=== PATIENT | male | born 1965 | race African-American/Black ===

== ENCOUNTER 2022-01-21 11:34 | Emergency (ER) | payer OTHER ==
[2022-01-21 12:31] LABS: Absolute Lymphocytes (CBC) 1.2 K/uL (0.7-4.9); Hematocrit 44.8 % (39.6-49.0); Lymphocytes % 34.1 % (15.3-44.8); MPV 9.6 fL (7.6-11.3); RBC Red Blood Cell Count 4.82 M/uL (4.33-5.43)
[2022-01-21 12:48] LABS: ALT/SGPT 30 U/L (12-78); AST/SGOT 20 U/L (15-37); Albumin 3.6 g/dL (3.4-5.0); Alkaline Phosphatase 72 U/L (45-117); BUN Blood Urea Nitrogen 17 mg/dL (7-18); Bicarbonate 31 mmol/L (21-32); Bilirubin Total 0.3 mg/dL (0.2-1.0); Glucose Level 94 mg/dL (74-106); Potassium 4.7 mmol/L (3.5-5.1); Protein, Total 7.8 g/dL (6.4-8.2); Sodium Level 143 mmol/L (136-145)
--- NOTE | 2022-01-21 12:52 | RAD REPORT ---
EXAM DESCRIPTION: RAD - Chest Single View - 01/21/2022 12:38 pm CLINICAL HISTORY: CHEST PAIN Chest pain. COMPARISON: No comparisons FINDINGS: Portable technique limits examination quality. The lungs are grossly clear. The heart is upper limit of normal in size. No displaced fractures. IMPRESSION: No acute intrathoracic process suspected.
--- NOTE | 2022-01-21 12:52 | RAD REPORT ---
EXAM DESCRIPTION: CT - Head Brain Wo Cont - 01/21/2022 12:46 pm CLINICAL HISTORY: HEADACHE COMPARISON: <Comparisons> TECHNIQUE: All CT scans are performed using dose optimization technique as appropriate and may inclu de automated exposure control or mA/KV adjustment according to patient size. FINDINGS: No intracranial hemorrhage, hydrocephalus or extra-axial fluid collection.No areas of brai n edema or evidence of midline shift. The paranasal sinuses and mastoids are clear. The calvarium is intact. IMPRESSION: No acute intracranial abnormality.
[2022-01-21 12:55] LABS: Bilirubin Direct < 0.1 mg/dL (0-0.2)
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
--- NOTE | 2022-01-21 13:56 | ER ---
Nurse's Notes [facility] Name: Jigar Sheffield Age: 56 yrs Sex: Male : 1965 Arrival Date: 01/21/2022 Time: 11:43 Bed 20 Private MD: Diagnosis: Essential (primary) hypertension;Headache;Paresthesia of skin Presentation: 01/21 11:48 Chief complaint: Patient states: Sent from prison for hypertension. Started on Metoprolol aa5 yesterday. Patient states that he has a headache, left arm numbness and left arm weakness that has been going on for a long time and gets worse when he sits still. Coronavirus screen: Vaccine status: Patient reports being unvaccinated. Client denies travel out of the [place] in the last 14 days. Ebola Screen: Patient denies travel to an Ebola-affected area in the 21 days before illness onset. Initial Sepsis Screen: Does the patient meet any 2 criteria? No. Patient's initial sepsis screen is negative. Does the patient have a suspected source of infection? No. Patient's initial sepsis screen is negative. Risk Assessment: Do you want to hurt yourself or someone else? Patient reports no desire to harm self or others. Onset of symptoms is unknown. 11:48 Method Of Arrival: [employer] aa5 11:48 Acuity: SONIDO 3 aa5 Triage Assessment: 11:49 General: Appears in no apparent distress. comfortable, Behavior is calm, cooperative. aa5 Pain: Complains of pain in top of head, left side of the back of head and right side of the back of head. Neuro: Level of Consciousness is awake, alert, obeys commands, Oriented to person, place, time, situation, Moves all extremities. Speech is normal. Cardiovascular: Patient's skin is warm and dry. Respiratory: Airway is patent Respiratory effort is even, unlabored, Respiratory pattern is regular, symmetrical. GI: No signs and/or symptoms were reported involving the gastrointestinal system. : No signs and/or symptoms were reported regarding the genitourinary system. Derm: No signs and/or symptoms reported regarding the dermatologic system. Historical: - Allergies: 11:49 No Known Allergies; aa5 - Home Meds: 11:49 metoprolol tartrate Oral [Active]; aa5 - PMHx: 11:49 Hypertensive disorder; aa5 - PSHx: 11:49 nose; foot; aa5 - Immunization history:: Adult Immunizations not up to date. - Social history:: Smoking status: Patient denies any tobacco usage or history of. Screenin:51 Abuse screen: Denies threats or abuse. Denies injuries from another. Nutritional aa5 screening: No deficits noted. Tuberculosis screening: No symptoms or risk factors identified. Fall Risk None identified. Assessment: 11:45 General: Appears in no apparent distress. comfortable, Behavior is calm, cooperative, cb5 appropriate for age. Pain: Denies pain. Neuro: No deficits noted. Level of Consciousness is awake, alert, obeys commands, Oriented to person, place, time, situation. Cardiovascular: No deficits noted. Cardiovascular: Reports headache. Respiratory: No deficits noted. GI: No deficits noted. : No deficits noted. : No deficits noted. EENT: No deficits noted. Derm: No deficits noted. Musculoskeletal: No deficits noted. 12:33 Reassessment: Pt is aaox4, resp even an unlabored, vss, appears to be in nad, Pt to ct. lr4 13:56 Reassessment: Patient is alert, oriented x 3, equal unlabored respirations, skin lr4 warm/dry/pink. Patient states feeling better. Patient states symptoms have improved. Vital Signs: 11:48 BP 163 / 98; Pulse 71; Resp 18; Temp 97.9; Pulse Ox 99% on R/A; Weight 90.72 kg; Height aa5 5 ft. 8 in. (172.72 cm); Pain 2/10; 12:19 BP 155 / 91; Pulse 75; Resp 20; Pulse Ox 99% on R/A; lr4 13:41 BP 138 / 94; Pulse 67; Resp 18; Pulse Ox 100% on R/A; lr4 11:48 Body Mass Index 30.41 (90.72 kg, 172.72 cm) aa5 ED Course: 11:43 Patient arrived in ED. jw7 11:49 Triage completed. aa5 11:49 Arm band placed on right wrist. aa5 11:50 Minnie Truong, RN is Primary Nurse. cb5 11:51 Patient has correct armband on for positive identification. Bed in low position. Side aa5 rails up X 1. Security at bedside. 11:58 Cabrera Padron NP is PHCP. pm1 11:58 Richard Recio MD is Attending Physician. pm1 12:03 EKG done, by ED staff, reviewed by Cabrera Padron NP. mb7 12:15 Report given to Juan Luis Santos cb5 12:23 Inserted saline lock: 20 gauge in left forearm, using aseptic technique. mb7 12:29 No provider procedures requiring assistance completed. lr4 12:30 XRAY Chest (1 view) Sent. lr4 12:38 XRAY Chest (1 view) In Process Unspecified. EDMS 12:46 CT Head Brain wo Cont In Process Unspecified. EDMS Administered Medications: No medications were administered Outcome: 12:29 Condition: stable lr4 13:56 Discharge ordered by . pm1 14:16 Patient left the ED. lr4 Signatures: Dispatcher [employer] EDMS Savita Velázquez, RN RN aa5 Cabrera Padron NP PRESALES SENIOR SPECIALIST pm1 Maribel Soriano mb7 Minnie Truong, RN RN cb5 Cynthia Conley 7 Danielle Landeros RN RN lr4 Corrections: (The following items were deleted from the chart) 11:50 11:49 Home Meds: None; aaGeovani joseph
[2022-01-21 14:24] VITALS: TEMP 97.9
[2022-01-21 14:27] VITALS: BP 138/94; O2SAT 100
--- NOTE | 2022-01-22 10:11 | EKG ---
Test Date: 2022-01-21 Test Time: 11:59:03 Automation Machine Builder: JULISSA MEASUREMENT RESULTS: Intervals: Rate: 71 [place]: 130 QRSD: 122 QT: 410 QTc: 445 [place]: P: 72 [place]: 130 QRS: -22 T: 37 INTERPRETIVE STATEMENTS: Normal sinus rhythm Left ventricular hypertrophy with QRS widening Nonspecific T wave abnormality Abnormal ECG No previous ECG available for comparison Electronically Signed On 01-22-22 10:10:50 CDT by Archie Mcnair
== END 2022-01-21 14:16 | disposition home or self-care (01) ==
LOC: ER 11:34
DX: I10 Essential (primary) hypertension (principal); R20.2 Paresthesia of skin
CPT/HCPCS: 36415; 70450; 71045; 80048; 80076; 84484; 85025; 93005; 99284